=== PATIENT | female | born 1965 | race Caucasian/White ===

== ENCOUNTER 2018-02-28 14:59 | Emergency (ER) | payer SELFPAY ==
[~2018-02-28] VITALS: Ht 162.6 cm; Wt 69.0 kg
[2018-02-28 15:12] VITALS: BP 111/68
[2018-02-28] MEDS ORDERED: KETOROLAC 30 MG/1 ML IM ONE (15:30)
[2018-02-28] MEDS ORDERED: HYDROcodone/APAP 10/325 MG TABLET PO ONE (15:33)
[2018-02-28] MEDS ORDERED: HYDROcodone/APAP 10/325 MG TABLET ONE (15:38)
== END 2018-02-28 15:50 | disposition home or self-care (01) ==
LOC: ED 15:40
DX: S39.012A Strain of muscle, fascia and tendon of lower back, initial encounter (principal); G89.29 Other chronic pain; Z76.0 Encounter for issue of repeat prescription; X50.9XXA Other and unspecified overexertion or strenuous movements or postures, initial encounter; Y93.89 Activity, other specified; Y92.89 Other specified places as the place of occurrence of the external cause; Y99.8 Other external cause status
CPT/HCPCS: 99283